=== PATIENT | male | born 1975 | race Caucasian/White ===

== ENCOUNTER 2016-12-04 22:52 | Emergency (ER) | payer SELFPAY ==
[2016-12-04 23:10] VITALS: BP 130/74
[2016-12-05] MEDS ORDERED: TETRACAINE HCL 0.5% OPH SOLN 2 ML ONE (01:36)
--- NOTE | 2016-12-05 01:49 | ER Document Report ---
ED General - General Chief Complaint: Foreign Body in Eye Stated Complaint: FOREIGN OBJECT IN EYE Time Seen by Provider: 12/05/16 01:34 Notes: Patient is a 41-year-old male, does not use corrective lenses or eyeglasses who presents with pain to his left eye for the past 3 days. 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 States that he has had irritation of the eye since that time but it became progressively worse today and he finally noticed that there is a small metallic foreign body in eye prompting him to come to the emergency department. He does note a dull, constant scratching pain to the left eye. He has been trying Visine drops at home with minimal improvement. Nothing worsens his symptoms. He denies any fever or constitutional symptoms. He has not seen an avaya engineer or superintendent house regarding today's concerns. He has no history of similar symptoms in the past. TRAVEL OUTSIDE OF THE [place] IN LAST 30 DAYS: No - Related Data Allergies/Adverse Reactions: No Known Allergies Allergy (Unverified 12/05/16 01:34) Home Medications: Current Home Medications No Home Medications 12/05/16 [History] Past Medical History - General Information source: Patient - Social History Smoking Status: Current Every Day Smoker Frequency of alcohol use: None Drug Abuse: None Lives with: Spouse/Significant other Family History: Reviewed & Not Pertinent Patient has suicidal ideation: No Patient has homicidal ideation: No Renal/ Medical History: Denies: Hx Peritoneal Dialysis Surgical Hx: Negative Review of Systems - Review of Systems Notes: Constitutional: Negative for fever. HENT: Negative for sore throat. Eyes: Positive for left eye pain Cardiovascular: Negative for chest pain. Respiratory: Negative for shortness of breath. Gastrointestinal: Negative for abdominal pain, vomiting or diarrhea. Genitourinary: Negative for dysuria. Musculoskeletal: Negative for back pain. Skin: Negative for rash. Neurological: Negative for headaches, weakness or numbness. 10 point ROS negative except as marked above and in HPI. Physical Exam - Vital signs Vitals: Temp Pulse Resp BP Pulse Ox 98.5 F 65 12 130/74 H 98 12/04/16 23:06 12/04/16 23:06 12/04/16 23:06 12/04/16 23:06 12/04/16 23:06 Interpretation: Normal Notes: PHYSICAL EXAMINATION: GENERAL: Well-appearing, well-nourished and in no acute distress. HEAD: Atraumatic, normocephalic. EYES: Scleral injection on the left. Extraocular motions are intact bilaterally. Pupils are 3 mm equally reactive. There is a very small black metallic foreign body embedded in the cornea of the left eye toward the nasal portion of the central eye. Fluorescein staining performed. No evidence of a corneal abrasion or ulcer. There is no evidence of a rust ring. ENT: Moist mucous membranes. NECK: Normal range of motion LUNGS: Normal work of breathing HEART: 2+ radial pulses bilaterally EXTREMITIES: no pitting or edema. No cyanosis. NEUROLOGICAL: No focal neurological deficits. Moves all extremities spontaneously and on command. PSYCH: Normal mood, normal affect. SKIN: Warm, Dry, normal turgor, no rashes or lesions noted. Course - Re-evaluation Re-evalutation: 12/05/16 01:46 Patient presents with an embedded metallic object in his left eye. Tetracaine was applied to the eye and fluorescein staining performed. No obvious corneal abrasion with exception of the area with an embedded metallic object. This was extracted using a 25-gauge needle without any difficulty. The eye was re- stained thereafter and there was no visualization of any additional corneal abrasion. Patient had full extra ocular motions. Pupils equal and reactive. Visual acute at the bedside 20/20 bilaterally. No additional injuries or concerns. Polytrim drop prophylaxis has been started. At this time will discharge with return precautions and follow-up recommendations. Verbal discharge instructions given a the bedside and opportunity for questions given. Medication warnings reviewed. Patient is in agreement with this plan and has verbalized understanding of return precautions and the need for optho follow-up in the next 24-72 hours. - Vital Signs Vital signs: Temp Pulse Resp BP Pulse Ox 98.5 F 65 12 130/74 H 98 12/04/16 23:06 12/04/16 23:06 12/04/16 23:06 12/04/16 23:06 12/04/16 23:06 Procedures - Eye Procedure Left Foreign body removal: Left Alcaine Drops Administered: Yes Fluorescein applied: Left Antibiotic Oinment/Drps Admin: Left eye Slit lamp used: No Notes: 12/05/16 04:06 Foreign metallic object removed from the left eye using a 25-gauge needle Discharge - Discharge Clinical Impression: Foreign body of left eye Qualifiers: Encounter type: initial encounter Qualified Code(s): T15.92XA - Foreign body on external eye, part unspecified, left eye, initial encounter Condition: Good Disposition: HOME, SELF-CARE Additional Instructions: You were seen tonight for a metallic foreign body in her left eye. This was able to be removed. Please use the Polytrim drops 3 times daily for the next 5 days. You may use a saline based eyedrop if your having irritation of the eye. Please follow-up with an avaya engineer or superintendent house in the next several days if you have any additional concerns or symptoms. Return for any additional concerns you may have including increasing pain, drainage from the eye, swelling around the eye, changes in vision to the eye, or any other symptoms that are worrisome to you.
[2016-12-05] MEDS ORDERED: POLYMYXIN B SULFATE/TMP OPH SOLN (10 ML/ER DISP) OS SCH (02:00)
== END 2016-12-05 01:59 | disposition home or self-care (01) ==
LOC: ER 22:52
PROC: 08C9XZZ Extirpation of Matter from Left Cornea, External Approach (ICD-10-PCS; principal; 2016-12-04)
DX: T15.92XA Foreign body on external eye, part unspecified, left eye, initial encounter (principal); F17.200 Nicotine dependence, unspecified, uncomplicated; X58.XXXA Exposure to other specified factors, initial encounter
CPT/HCPCS: 99283; 65220; J3490

== ENCOUNTER 2016-12-17 01:05 | Emergency (ER) | payer SELFPAY ==
[2016-12-17] MEDS ORDERED: CEFTRIAXONE INJ 1000 MG VIAL IM ONE (03:14)
[2016-12-17] MEDS ORDERED: BACITRACIN ZINC OINTMENT 15 GM TP ONE (03:15)
[2016-12-17] MEDS ORDERED: HYDROCODONE/ACETAMINOPHEN 5-325 MG 6 TAB/DSPK PO PRN (03:15)
[2016-12-17] MEDS ORDERED: DIPH/PERTUSS(ACELL)/TETANUS VAC/PF 0.5 ML SYR (>=10YO) IM ONE (03:28)
--- NOTE | 2016-12-17 04:18 | ER Document Report ---
ED General - General Chief Complaint: Dog Bite Stated Complaint: POSSIBLE DOG BITE Time Seen by Provider: 12/17/16 03:00 Mode of Arrival: Ambulatory Information source: Patient TRAVEL OUTSIDE OF THE [place] IN LAST 30 DAYS: No - HPI Notes: Patient presents with report that earlier this afternoon he broke up a fight between his 2 dogs and was bitten on the right forearm, and initially had no significant discomfort but has had progressive discomfort to the right forearm with a mild amount of swelling since. The patient's dogs will be watched, and there is no concern for rabies exposure. Patient denies any numbness, paresthesia, fever, other injury. Patient does report some mild pain with movement to the hand and wrist. - Related Data Allergies/Adverse Reactions: No Known Allergies Allergy (Verified 12/17/16 01:06) Past Medical History - General Information source: Patient - Social History Smoking Status: Current Every Day Smoker Frequency of alcohol use: None Drug Abuse: None Lives with: Family Family History: Reviewed & Not Pertinent Patient has suicidal ideation: No Patient has homicidal ideation: No Renal/ Medical History: Denies: Hx Peritoneal Dialysis Review of Systems - Review of Systems Notes: REVIEW OF SYSTEMS: CONSTITUTIONAL : Denies fever, chills, or sweats. Denies recent illness. EENT: Denies eye, ear, throat, or mouth pain or symptoms. Denies nasal or sinus congestion or discharge. Denies throat, tongue, or mouth swelling or difficulty swallowing. CARDIOVASCULAR: Denies chest pain. Denies palpitations or racing or irregular heart beat. Denies ankle edema. RESPIRATORY: Denies cough, cold, or chest congestion. Denies shortness of breath, difficulty breathing, or wheezing. GASTROINTESTINAL: Denies abdominal pain or distention. Denies nausea, vomiting , or diarrhea. Denies blood in vomitus, stools, or per rectum. Denies black, tarry stools. Denies constipation. GENITOURINARY: Denies difficulty urinating, painful urination, burning, frequency, blood in urine, or discharge. MUSCULOSKELETAL: Denies back or neck pain or stiffness. Reports mild swelling to the right forearm. SKIN: Denies rash. HEMATOLOGIC : Denies easy bruising or bleeding. LYMPHATIC: Denies swollen, enlarged glands. NEUROLOGICAL: Denies confusion or altered mental status. Denies passing out or loss of consciousness. Denies dizziness or lightheadedness. Denies headache. Denies weakness or paralysis or loss of use of either side. Denies problems with gait or speech. Denies sensory loss, numbness, or tingling. Denies seizures. PSYCHIATRIC: Denies anxiety or stress. Denies depression, suicidal ideation, or homicidal ideation. ALL OTHER SYSTEMS REVIEWED AND NEGATIVE. Dictation was performed using [employer] voice recognition software Physical Exam - Vital signs Vitals: Temp Pulse Resp BP Pulse Ox 97.9 F 83 16 111/74 97 12/17/16 01:10 12/17/16 01:10 12/17/16 01:10 12/17/16 01:10 12/17/16 01:10 - Notes Notes: PHYSICAL EXAMINATION: GENERAL: Well-appearing, well-nourished and in no acute distress. HEAD: Atraumatic, normocephalic. EYES: extraocular movements intact, sclera anicteric, conjunctiva are normal. ENT: Nares patent, NECK: Normal range of motion, Musculoskeletal: Normal range of motion, no pitting or edema. No cyanosis. NEUROLOGICAL: Normal sensory, motor exams PSYCH: Normal mood, normal affect. SKIN: Warm, Dry, normal turgor, no rashes. Patient has a puncture wound measuring 3 mm right volar aspect of the forearm along the ulnar region, there is no significant discharge there is no significant erythema, but there is some mild swelling. There is pain with active motion but no pain with passive motion in flexion and extension of the hand and wrist. There is no proximal erythema or adenopathy. Distally the patient has good capillary refill and pulses. Tendon function is intact. Course - Re-evaluation Re-evalutation: 12/17/16 04:44 Patient was given a tetanus shot, and was given a shot of Rocephin. The wound was cleaned and antibiotic ointment was applied. Discussion was undertaken with the patient and his significant other about the importance of taking his antibiotic regularly, and about the importance of orthopedic follow-up should the patient develop any fever, redness, worsening pain or swelling. - Vital Signs Vital signs: Temp Pulse Resp BP Pulse Ox 97.9 F 84 18 118/78 100 12/17/16 04:33 12/17/16 04:33 12/17/16 04:33 12/17/16 04:33 12/17/16 04:33 Discharge - Discharge Clinical Impression: Dog bite Qualifiers: Encounter type: initial encounter Qualified Code(s): W54.0XXA - Bitten by dog, initial encounter Condition: Stable Disposition: HOME, SELF-CARE Instructions: Animal Bites ([facility]) Additional Instructions: Keep wound clean and dry. Apply antibiotic ointment to the wound. Return to the emergency department case of fever, severe pain or swelling or redness. Prescriptions: Hydrocodone/Acetaminophen [[place] 5-325 mg Tablet] 1 tab PO Q4HP PRN #20 tablet PRN Reason: Amox Tr/Potassium Clavulanate [Augmentin 875-125 Tablet] 1 tab PO BID 10 Days tablet Forms: Return to Work
[2016-12-17 04:35] VITALS: BP 118/78
== END 2016-12-17 04:35 | disposition home or self-care (01) ==
LOC: ER 01:05
DX: S51.851A Open bite of right forearm, initial encounter (principal); W54.0XXA Bitten by dog, initial encounter; F17.200 Nicotine dependence, unspecified, uncomplicated
CPT/HCPCS: 99283; 96372; 90471; 90715; J0696; J3490

== ENCOUNTER 2016-12-17 23:36 | Inpatient (IN) | payer SELFPAY ==
[2016-12-18] MEDS ORDERED: VANCOMYCIN HCL INJ 1000 MG VIAL IV ONE (00:41)
[2016-12-18] MEDS ORDERED: AMPICILLIN SOD/SULBACTAM 3 GM VIAL IV ONE (00:41)
[2016-12-18] MEDS ORDERED: MORPHINE SULFATE 10 MG/ML INJ IV ONE (00:45)
--- NOTE | 2016-12-18 00:46 | ER Document Report ---
ED General - General Chief Complaint: Dog Bite Stated Complaint: ARM PAIN Time Seen by Provider: 12/18/16 00:36 Notes: Patient is a 41-year-old male who presents with complaint of increased redness and swelling in his right forearm. He was seen at 4 AM yesterday morning after a dog bite. He is bringing up to his dogs were fighting. He got bit on the right arm. Seen yesterday and placed on Augmentin. He says he has been taking Augmentin but since then he now has increasing redness and swelling and a red streak that goes all the way up his upper arm. He is able to flex and extend the fingers of his right hand but he says he does have some pain in doing so. No fevers at home. No other complaints at this time. He did receive tetanus yesterday. The dog is a family dog without concern for rabies. TRAVEL OUTSIDE OF THE [place] IN LAST 30 DAYS: No - Related Data Allergies/Adverse Reactions: No Known Allergies Allergy (Verified 12/17/16 01:06) Past Medical History - Social History Smoking Status: Current Every Day Smoker Frequency of alcohol use: Rare Family History: Reviewed & Not Pertinent Patient has suicidal ideation: No Patient has homicidal ideation: No Renal/ Medical History: Denies: Hx Peritoneal Dialysis Review of Systems - Review of Systems Notes: My Normal Review Basic REVIEW OF SYSTEMS: CONSTITUTIONAL : Denies fever, chills, or sweats. Denies recent illness. MUSCULOSKELETAL: Right arm pain. SKIN: Some swelling to the skin right arm. NEUROLOGICAL: Denies altered mental status or loss of consciousness. Denies headache. Denies weakness or paralysis or loss of use of either side. Denies problems with gait or speech. Denies sensory or motor loss. ALL OTHER SYSTEMS REVIEWED AND NEGATIVE. Physical Exam - Vital signs Vitals: Temp Pulse Resp BP Pulse Ox 97.9 F 70 20 123/80 97 12/17/16 23:43 12/17/16 23:43 12/17/16 23:43 12/17/16 23:43 12/17/16 23:43 - Notes Notes: General Appearance: Well nourished, alert, cooperative, no acute distress, moderate obvious discomfort. Vitals: reviewed, See vital signs table. Eyes: PERRL, EOMI, Conjuctiva clear Mouth: No decreasd moisture Extremities: strength 5/5 in all extremities, good pulses in all extremities, patient has swelling and redness to the right arm that starts over the distal wrist and extends all the way to the elbow. He then has a red streak consistent with lymphangitis that goes all the way up the medial aspect of the upper arm. There is no palpable fluctuance or abscess. Patient is able to flex and extend the fingers of the right hand but has some pain in doing so. Skin: warm, dry, appropriate color, no rash Neuro: speech clear, oriented x 3, normal affect, responds appropriately to questions. Course - Re-evaluation Re-evalutation: 12/18/16 01:59 Due to the patient's failure of outpatient antibiotic therapy and much worsening of his cellulitis with some lymphangitis and felt appropriate to admit him for at least observation with IV antibiotics to make sure that the cellulitis starts to improve and go in the right direction. I did speak with the hospitalist, Dr. Navdeep Berrios, who agrees to come evaluate the patient for admission. Dictation of this chart was performed using voice recognition software; therefore, there may be some unintended grammatical errors. - Vital Signs Vital signs: Temp Pulse Resp BP Pulse Ox 97.9 F 70 20 123/80 97 12/17/16 23:43 12/17/16 23:43 12/17/16 23:43 12/17/16 23:43 12/17/16 23:43 - Laboratory Result Diagrams: 12/18/16 01:00 12/18/16 01:00 Laboratory results interpreted by me: 12/18/16 01:00 WBC 15.4 H Absolute Neutrophils 10.9 H Discharge - Discharge Clinical Impression: Dog bite Qualifiers: Encounter type: subsequent encounter Qualified Code(s): W54.0XXD - Bitten by dog, subsequent encounter Cellulitis Qualifiers: Site of cellulitis: extremity Site of cellulitis of extremity: upper extremity Laterality: right Qualified Code(s): L03.113 - Cellulitis of right upper limb Condition: Stable Disposition: ADMITTED OBSERVATION Admitting Provider: Hospitalist
[2016-12-18 01:36] LABS: ABSOLUTE BASOPHILS # (AUTO) 0.1 10^3/uL (0.0-0.2); ABSOLUTE EOSINOPHILS # (AUTO) 0.2 10^3/uL (0.0-0.6); ABSOLUTE MONOCYTES (AUTO) 1.3 10^3/uL (0.1-1.4); ABSOLUTE NEUT (AUTO) 10.9 10^3/uL (1.7-8.2); BASOPHILS % (AUTO) 0.5 % (0-2); HEMATOCRIT 38.9 % (37.9-51.0); HEMOGLOBIN 13.5 g/dL (13.5-17.0); HGB HCT DIFFERENCE 1.6; LYMPHOCYTES % (AUTO) 19.3 % (13-45); MEAN CORPUSCULAR HEMOGLOBIN 30.3 pg (27.0-33.4); MEAN CORPUSCULAR HGB CONC 34.8 g/dL (32.0-36.0); MEAN CORPUSCULAR VOLUME 87 fl (80-97); MONOCYTES % (AUTO) 8.1 % (3-13); RED BLOOD COUNT 4.47 10^6/uL (4.35-5.55); RED CELL DISTRIBUTION WIDTH 12.7 % (11.5-14.0); SEGMENTED NEUTROPHILS % (AUTO) 71.1 % (42-78); WHITE BLOOD COUNT 15.4 10^3/uL (4.0-10.5)
[2016-12-18 01:40] LABS: ANION GAP 12 (5-19); BLOOD UREA NITROGEN 14 mg/dL (7-20); CALCIUM 9.2 mg/dL (8.4-10.2); CARBON DIOXIDE 30 mmol/L (22-30); CHLORIDE 102 mmol/L (98-107); CREATININE RESULT 0.81 mg/dL (0.52-1.25); GLUCOSE 89 mg/dL (75-110); POTASSIUM 3.7 mmol/L (3.6-5.0); SODIUM 143.5 mmol/L (137-145)
[2016-12-18] MEDS ORDERED: ACETAMINOPHEN 325 MG TABLET PO PRN (01:59)
[2016-12-18] MEDS ORDERED: ONDANSETRON HCL INJ/PF 4 MG/2 ML SDV IV PRN ×2 (01:59→07:30)
[2016-12-18] MEDS ORDERED: IPRATROPIUM/ALBUTEROL 0.5-2.5 MG/3 ML AMPUL NEB PRN (01:59)
[2016-12-18] MEDS ORDERED: VANCOMYCIN HCL 0 MG in DEXTROSE 5%-WATER 250 ML IV NR (02:00)
--- NOTE | 2016-12-18 02:14 | RADIOLOGY REPORT (SQ) ---
EXAM DESCRIPTION: FOREARM RIGHT COMPLETED DATE/TIME: 12/18/2016 1:48 am REASON FOR STUDY: dog bite COMPARISON: None. NUMBER OF VIEWS: Two views. TECHNIQUE: Two radiographic images acquired of the right forearm, including elbow and wrist in at le ast one projection. LIMITATIONS: None. FINDINGS: MINERALIZATION: Normal. BONES: No acute fracture. No worrisome bone lesions. SOFT TISSUES: No foreign body. Known soft tissue injury/laceration. OTHER: No other significant finding. IMPRESSION: NEGATIVE STUDY OF THE RIGHT FOREARM. NO RADIOGRAPHIC EVIDENCE OF ACUTE INJURY. Known so ft tissue injury/laceration. TECHNICAL DOCUMENTATION: JOB ID: [id number] [employer]- All Rights Reserved
[2016-12-18] MEDS: NORMAL SALINE 1000 ML 1,000 ML IV SCH ×2 (02:31→05:45)
[2016-12-18] MEDS: KETOROLAC TROMETHAMINE INJ/PF 30 MG/1 ML SDV IV PRN ×4 (03:12→22:09)
[2016-12-18] MEDS ORDERED: AMPICILLIN SOD/SULBACTAM 3 GM VIAL IV PRN (05:00)
[2016-12-18] MEDS: AMPICILLIN SODIUM/SULBACTAM NA 3 GM in NORMAL SALINE 100 ML IV SCH ×3 (05:41→19:08)
[2016-12-18] MEDS: HEPARIN SOD (PORCINE) 5,000 UNIT/ML 1 ML SYRINGE SUBCUT SCH ×3 (06:16→22:10)
[2016-12-18 06:29] LABS: ABSOLUTE BASOPHILS # (AUTO) 0.1 10^3/uL (0.0-0.2); ABSOLUTE EOSINOPHILS # (AUTO) 0.3 10^3/uL (0.0-0.6); ABSOLUTE LYMPHOCYTES (AUTO) 2.8 10^3/uL (0.5-4.7); ABSOLUTE MONOCYTES (AUTO) 1.3 10^3/uL (0.1-1.4); ABSOLUTE NEUT (AUTO) 8.1 10^3/uL (1.7-8.2); BASOPHILS % (AUTO) 0.7 % (0-2); EOSINOPHILS % (AUTO) 2.5 % (0-6); HEMATOCRIT 33.6 % (37.9-51.0); HEMOGLOBIN 11.8 g/dL (13.5-17.0); HGB HCT DIFFERENCE 1.8; LYMPHOCYTES % (AUTO) 22.3 % (13-45); MEAN CORPUSCULAR HEMOGLOBIN 30.7 pg (27.0-33.4); MEAN CORPUSCULAR HGB CONC 35.2 g/dL (32.0-36.0); MEAN CORPUSCULAR VOLUME 87 fl (80-97); MONOCYTES % (AUTO) 10.3 % (3-13); RED BLOOD COUNT 3.86 10^6/uL (4.35-5.55); RED CELL DISTRIBUTION WIDTH 12.8 % (11.5-14.0); SEGMENTED NEUTROPHILS % (AUTO) 64.2 % (42-78); WHITE BLOOD COUNT 12.6 10^3/uL (4.0-10.5)
--- NOTE | 2016-12-18 06:43 | PDOC H&P ---
History of Present Illness Admission Date/PCP: 12/18/16 01:59 Patient complains of: Right forearm pain and swelling History of Present Illness: JL SEALS is a 41 year old male with a past medical history of tobacco dependence who was in his usual state of health until approximately 24 hours prior to presentation receiving a dog bite to the right forearm while his dogs from fighting. He noted pain and swelling shortly thereafter prompting him to seek evaluation emergency room where he was placed on Augmentin and discharged however developed worsening prompting a return where he is found to have erythema and edema involving the entire right forearm. Imaging does not reveal foreign body or abscess he started on vancomycin and Unasyn referred to the hospitalist for admission. Patient denies previous episode or MRSA. Past Medical History Medical History: None Psychiatric Medical History: Denies: Depression Past Surgical History Past Surgical History: Reports: None Social History Information Source: Patient Smoking Status: Current Every Day Smoker Frequency of Alcohol Use: Rare Hx Recreational Drug Use: No Drugs: None Hx Prescription Drug Abuse: No - Advance Directive Resuscitation Status: Full Code Family History Family History: COPD Parental Family History Reviewed: Yes Children Family History Reviewed: Yes Sibling(s) Family History Reviewed.: Yes Medication/Allergy Home Medications: No Home Medications 12/18/16 Allergies/Adverse Reactions: No Known Allergies Allergy (Verified 12/17/16 01:06) Review of Systems Constitutional: ABSENT: chills, fever(s), headache(s), weight gain, weight loss Eyes: ABSENT: visual disturbances Ears: ABSENT: hearing changes Cardiovascular: ABSENT: chest pain, dyspnea on exertion, edema, orthropnea, palpitations Respiratory: ABSENT: cough, hemoptysis Gastrointestinal: ABSENT: abdominal pain, constipation, diarrhea, hematemesis, hematochezia, nausea, vomiting Genitourinary: ABSENT: dysuria, hematuria Musculoskeletal: ABSENT: joint swelling Integumentary: ABSENT: rash, wounds Neurological: ABSENT: abnormal gait, abnormal speech, confusion, dizziness, focal weakness, syncope Psychiatric: ABSENT: anxiety, depression, homidical ideation, suicidal ideation Endocrine: ABSENT: cold intolerance, heat intolerance, polydipsia, polyuria Hematologic/Lymphatic: ABSENT: easy bleeding, easy bruising Physical Exam Vital Signs: Temp Pulse Resp BP Pulse Ox 98 F 65 14 104/64 99 12/18/16 03:38 12/18/16 03:38 12/18/16 03:38 12/18/16 03:38 12/18/16 03:38 Intake & Output 12/16/16 12/17/16 12/18/16 11:59 11:59 11:59 Weight 59.5 kg General appearance: PRESENT: cooperative, mild distress Head exam: PRESENT: atraumatic, normocephalic Eye exam: PRESENT: conjunctiva pink, EOMI, PERRLA. ABSENT: scleral icterus Ear exam: PRESENT: normal external ear exam Mouth exam: PRESENT: moist, tongue midline Neck exam: ABSENT: carotid bruit, JVD, lymphadenopathy, thyromegaly Respiratory exam: PRESENT: clear to auscultation braxton. ABSENT: rales, rhonchi, wheezes Cardiovascular exam: PRESENT: RRR. ABSENT: diastolic murmur, rubs, systolic murmur Pulses: PRESENT: normal dorsalis pedis pul Vascular exam: PRESENT: normal capillary refill GI/Abdominal exam: PRESENT: normal bowel sounds, soft. ABSENT: distended, guarding, mass, organolmegaly, rebound, tenderness Rectal exam: PRESENT: deferred Extremities exam: PRESENT: full ROM. ABSENT: calf tenderness, clubbing, pedal edema Neurological exam: PRESENT: alert, awake, oriented to person, oriented to place , oriented to time, oriented to situation, CN II-XII grossly intact. ABSENT: motor sensory deficit Psychiatric exam: PRESENT: appropriate affect, normal mood. ABSENT: homicidal ideation, suicidal ideation Skin exam: PRESENT: dry, erythema - Right forearm erythema and edema with a 1 cm laceration distally without exudate, warm. ABSENT: cyanosis, rash Results Impressions: Forearm X-Ray 12/18/16 00:42 IMPRESSION: NEGATIVE STUDY OF THE RIGHT FOREARM. NO RADIOGRAPHIC EVIDENCE OF ACUTE INJURY. Known soft tissue injury/laceration. Assessment & Plan - Diagnosis (1) Dog bite Qualifiers: Encounter type: subsequent encounter Qualified Code(s): W54.0XXD - Bitten by dog, subsequent encounter Is this a current diagnosis for this admission?: Yes Plan: Failing outpatient Augmentin. Unasyn and vancomycin initiated given pain with range of motion and concern for early tenosynovitis will obtain orthopedic surgery consult. (2) Cellulitis Qualifiers: Site of cellulitis: extremity Site of cellulitis of extremity: upper extremity Laterality: right Qualified Code(s): L03.113 - Cellulitis of right upper limb Is this a current diagnosis for this admission?: Yes Plan: Please see #1 follow-up CBC and blood culture (3) Tobacco abuse Is this a current diagnosis for this admission?: Yes Plan: Tobacco Dependence patient received tobacco cessation counseling and offered nicotine replacement options - Time Time Spent: 30 to 50 Minutes - Inpatient Certification Medical Necessity: Need Close Monitoring Due to Risk of Patient Decompensation
[2016-12-18] MEDS: VANCOMYCIN HCL 1,000 MG in DEXTROSE 5%-WATER 250 ML IV SCH ×2 (09:24→22:09)
[2016-12-18] MEDS: DOCUSATE SODIUM 100 MG CAPSULE PO SCH ×2 (09:24→19:08)
--- NOTE | 2016-12-18 16:17 | PDOC PROGRESS REPORT ---
Subjective Progress Note for:: 12/18/16 Subjective:: Pt seen while resting in bed comfortably with family present. He reports continued stiffness of Rt wrist and 3-5th fingers. He reports discomfort with movement, but otherwise is pain free. Edema and intensity of erythema has improved significantly throughout the day (family member showed me pictures). Pt's primary concern today is nicotine withdrawal. He reports that he has been agitated and "having nicotine fits" throughout the day. He declines nicotine patch. Offered to allow family member to bring otc nicotine gum if he would find that beneficial. Pt has no other questions or concerns today. ROS as above and otherwise negative. Physical Exam Vital Signs: Temp Pulse Resp BP Pulse Ox 97.8 F 123 H 12 99/55 L 98 12/18/16 12:20 12/18/16 12:20 12/18/16 12:20 12/18/16 12:20 12/18/16 12:20 Intake & Output 12/17/16 12/18/16 12/19/16 06:59 06:59 06:59 Intake Total 2364 Balance 2364 Weight 59.5 kg General appearance: PRESENT: no acute distress, thin, well-developed, well- nourished Head exam: PRESENT: atraumatic, normocephalic Eye exam: PRESENT: conjunctiva pink, EOMI, PERRLA. ABSENT: scleral icterus Ear exam: PRESENT: normal external ear exam Mouth exam: PRESENT: moist, tongue midline Teeth exam: PRESENT: poor dentation Neck exam: ABSENT: carotid bruit, JVD, lymphadenopathy, thyromegaly Respiratory exam: PRESENT: clear to auscultation braxton, symmetrical, unlabored. ABSENT: rales, rhonchi, wheezes Cardiovascular exam: PRESENT: RRR, tachycardia. ABSENT: diastolic murmur, rubs , systolic murmur Pulses: PRESENT: normal dorsalis pedis pul Vascular exam: PRESENT: normal capillary refill GI/Abdominal exam: PRESENT: normal bowel sounds, soft. ABSENT: distended, guarding, mass, organolmegaly, rebound, tenderness Rectal exam: PRESENT: deferred Extremities exam: PRESENT: full ROM, tenderness - Rt wrist; worsens with flexion and glass cleaning machine tender. ABSENT: calf tenderness, clubbing, pedal edema Neurological exam: PRESENT: alert, awake, oriented to person, oriented to place , oriented to time, oriented to situation, CN II-XII grossly intact. ABSENT: motor sensory deficit Psychiatric exam: PRESENT: appropriate affect, normal mood. ABSENT: homicidal ideation, suicidal ideation Skin exam: PRESENT: dry, erythema, intact, warm, other - Rt forearm mild edema and minimal erythema with a 1 cm laceration distally without exudate. ABSENT: cyanosis, rash Results Laboratory Results: 12/18/16 06:02 12/18/16 06:02 WBC 12.6 H RBC 3.86 L Hgb 11.8 L Hct 33.6 L MCV 87 MCH 30.7 MCHC 35.2 RDW 12.8 Plt Count 124 L Seg Neutrophils % 64.2 Lymphocytes % 22.3 Monocytes % 10.3 Eosinophils % 2.5 Basophils % 0.7 Absolute Neutrophils 8.1 Absolute Lymphocytes 2.8 Absolute Monocytes 1.3 Absolute Eosinophils 0.3 Absolute Basophils 0.1 Impressions: Forearm X-Ray 12/18/16 00:42 IMPRESSION: NEGATIVE STUDY OF THE RIGHT FOREARM. NO RADIOGRAPHIC EVIDENCE OF ACUTE INJURY. Known soft tissue injury/laceration. Assessment & Plan - Diagnosis (1) Cellulitis Qualifiers: Site of cellulitis: extremity Site of cellulitis of extremity: upper extremity Laterality: right Qualified Code(s): L03.113 - Cellulitis of right upper limb Is this a current diagnosis for this admission?: Yes Plan: Failed outpatient Augmentin. 1- Continue Unasyn and Vancomycin. Blood cultures pending. 2- Keep extremity elevated, continue gentle range of motion 3- Appreciate Orthopedic consultation for evaluation of tenosynovitis (2) Tobacco abuse Is this a current diagnosis for this admission?: Yes Plan: Tobacco dependence; smokes 1 ppd. Discussed smoking cessation. Pt declined nicotine replacement therapy. (3) Tachycardia Is this a current diagnosis for this admission?: Yes Plan: Pt with tachycardia (HR 124) and relatively low blood pressure. Has been afebrile and does not appear toxically ill. Pt reports that he has been agitated today w/ regard to nicotine withdrawal and states that his elevated HR was likely to him being upset earlier in the day. Will continue to monitor closely for early sepsis. 1- Continue IV abx as above 2- Blood cultures pending (4) Dog bite Qualifiers: Encounter type: subsequent encounter Qualified Code(s): W54.0XXD - Bitten by dog, subsequent encounter Is this a current diagnosis for this admission?: Yes Plan: Plan as above. - Time Time Spent with patient: 25-34 minutes Smoking Cessation Education: 3 to 10 minutes Medications reviewed and adjusted accordingly: Yes Anticipated discharge: Home
--- NOTE | 2016-12-18 16:44 | PDOC CONSULTATION ---
Consultation Consult Date: 12/18/16 Consult reason:: Dog bite to the right volar forearm History of Present Illness Admission Date/PCP: 12/18/16 01:59 Patient complains of: Right forearm pain status post dog bite History of Present Illness: 41-year-old gentleman who was his dog from a fight when he had a dog bite to the right forearm on the volar aspect. Patient was admitted for IV antibiotics. He complains of pain with flexing the middle ring and small finger of the right hand. He states there is only one puncture from the dog bite on the volar aspect. Denies any fevers or chills. Denies any streaking and erythema but the arm. Denies any numbness or tingling or paresthesias. Despite the pain patient does admit having full motion of the hands. Past Medical History Psychiatric Medical History: Denies: Depression Past Surgical History Past Surgical History: Reports: None Social History Smoking Status: Current Every Day Smoker Frequency of Alcohol Use: Rare Hx Recreational Drug Use: No Drugs: None Hx Prescription Drug Abuse: No - Advance Directive Resuscitation Status: Full Code Family History Family History: COPD Parental Family History Reviewed: No Children Family History Reviewed: No Sibling(s) Family History Reviewed.: No Medication/Allergy Home Medications: No Home Medications 12/18/16 Allergies/Adverse Reactions: No Known Allergies Allergy (Verified 12/17/16 01:06) Review of Systems All systems: reviewed and no additional remarkable complaints except as stated Physical Exam Vital Signs: Temp Pulse Resp BP Pulse Ox 36.6 C 123 H 12 99/55 L 98 12/18/16 12:20 12/18/16 12:20 12/18/16 12:20 12/18/16 12:20 12/18/16 12:20 Intake & Output 12/17/16 12/18/16 12/19/16 06:59 06:59 06:59 Intake Total 2364 Balance 2364 Weight 59.5 kg General appearance: PRESENT: no acute distress, well-nourished Eye exam: PRESENT: EOMI Adult Front & Back Image: 1 - 1 7 mm puncture wound on the volar aspect just proximal to the wrist crease of the right forearm. Patient can fully extend all 5 digits and fully flex all digits including the PIP DIP and MCP joints. He does have pain with range of motion of the middle ring and small finger. He has good sensation to light touch and good capillary refill. Palpation of the forearm is tender but minimal erythema. Results Laboratory Results: 12/18/16 06:02 12/18/16 06:02 WBC 12.6 H RBC 3.86 L Hgb 11.8 L Hct 33.6 L MCV 87 MCH 30.7 MCHC 35.2 RDW 12.8 Plt Count 124 L Seg Neutrophils % 64.2 Lymphocytes % 22.3 Monocytes % 10.3 Eosinophils % 2.5 Basophils % 0.7 Absolute Neutrophils 8.1 Absolute Lymphocytes 2.8 Absolute Monocytes 1.3 Absolute Eosinophils 0.3 Absolute Basophils 0.1 Impressions: Forearm X-Ray 12/18/16 00:42 IMPRESSION: NEGATIVE STUDY OF THE RIGHT FOREARM. NO RADIOGRAPHIC EVIDENCE OF ACUTE INJURY. Known soft tissue injury/laceration. Assessment & Plan - Diagnosis (1) Cellulitis Qualifiers: Site of cellulitis: extremity Site of cellulitis of extremity: upper extremity Laterality: right Qualified Code(s): L03.113 - Cellulitis of right upper limb Is this a current diagnosis for this admission?: Yes Plan: 41-year-old gentleman admitted for IV antibiotics for cellulitis second to dog bite. Patient has full function and intact tendons with no signs of abscess. At this point no surgical intervention required and will sign off. \ Call us with any questions.
[2016-12-19] MEDS: AMPICILLIN SODIUM/SULBACTAM NA 3 GM in NORMAL SALINE 100 ML IV SCH ×2 (00:40→05:03)
[2016-12-19 00:57] VITALS: BP 106/56
[2016-12-19] MEDS: KETOROLAC TROMETHAMINE INJ/PF 30 MG/1 ML SDV IV PRN (05:03)
[2016-12-19] MEDS: HEPARIN SOD (PORCINE) 5,000 UNIT/ML 1 ML SYRINGE SUBCUT SCH (05:03)
[2016-12-19 05:47] LABS: ABSOLUTE BASOPHILS # (AUTO) 0.1 10^3/uL (0.0-0.2); ABSOLUTE EOSINOPHILS # (AUTO) 0.5 10^3/uL (0.0-0.6); ABSOLUTE LYMPHOCYTES (AUTO) 2.5 10^3/uL (0.5-4.7); ABSOLUTE MONOCYTES (AUTO) 0.9 10^3/uL (0.1-1.4); ABSOLUTE NEUT (AUTO) 5.7 10^3/uL (1.7-8.2); EOSINOPHILS % (AUTO) 4.9 % (0-6); HEMATOCRIT 34.3 % (37.9-51.0); HEMOGLOBIN 12.1 g/dL (13.5-17.0); LYMPHOCYTES % (AUTO) 25.7 % (13-45); MEAN CORPUSCULAR HEMOGLOBIN 30.9 pg (27.0-33.4); MEAN CORPUSCULAR HGB CONC 35.4 g/dL (32.0-36.0); MEAN CORPUSCULAR VOLUME 88 fl (80-97); MONOCYTES % (AUTO) 9.6 % (3-13); RED BLOOD COUNT 3.92 10^6/uL (4.35-5.55); RED CELL DISTRIBUTION WIDTH 12.7 % (11.5-14.0); SEGMENTED NEUTROPHILS % (AUTO) 58.8 % (42-78); WHITE BLOOD COUNT 9.7 10^3/uL (4.0-10.5)
[2016-12-19 06:13] LABS: ANION GAP 9 (5-19); BLOOD UREA NITROGEN 14 mg/dL (7-20); CALCIUM 8.9 mg/dL (8.4-10.2); CARBON DIOXIDE 26 mmol/L (22-30); CHLORIDE 107 mmol/L (98-107); CREATININE RESULT 0.73 mg/dL (0.52-1.25); GLUCOSE 95 mg/dL (75-110); SODIUM 142.1 mmol/L (137-145)
--- NOTE | 2016-12-19 10:29 | PDOC DISCHARGE SUMMARY ---
General - Admit/Disc Date/PCP Admission Date/Primary Care Provider: 12/18/16 01:59 Discharge Date: 12/19/16 - Discharge Diagnosis (1) Cellulitis Is this a current diagnosis for this admission?: Yes Summary: Pt was seen in the ED late in the evening of 12/17 for a dog bite. He received IM rocephin and provided a prescription for Augmentin. He returned to the ED the following evening for worsening redness and erythema. He was admitted for IV antibiotics as there was a concern of possible treatment failure and tenosynovitis. Othopedics was consulted and determined there was no need for surgical intervention. The patient improved rapidly with IV antibiotics. Considering that he worsened within the first 24 hours, it is unlikely that this was a true treatment failure on Augmentin and so will be discharged with instructions to resume his prescription and complete the full 14 day course. (2) Tobacco abuse Is this a current diagnosis for this admission?: Yes (3) Tachycardia Is this a current diagnosis for this admission?: Yes Summary: Resolved. (4) Dog bite Is this a current diagnosis for this admission?: Yes Summary: As above. - Additional Information Resuscitation Status: Full Code Discharge Diet: Regular Discharge Activity: Activity As Tolerated, Other - Keep extremity elevated. Home Medications: No Home Medications 12/18/16 History of Present Illness Patient complains of: Slight tenderness to right wrist with flexion. History of Present Illness: Per H&P by Dr. Berrios: JL SEALS is a 41 year old male with [facility] significant for tobacco dependence who was in his usual state of health until approximately 24 hours prior to presentation receiving a dog bite to the right forearm while his dogs from fighting. He noted pain and swelling shortly thereafter prompting him to seek evaluation emergency room where he was placed on Augmentin and discharged however developed worsening prompting a return where he is found to have erythema and edema involving the entire right forearm. Imaging does not reveal foreign body or abscess he started on vancomycin and Unasyn referred to the hospitalist for admission. Patient denies previous episode or MRSA. Hospital Course Hospital Course: Patient was admitted on the for cellulitis to the right forearm secondary to a dog bite. He was placed on IV vancomycin and Unasyn. Orthopedics was consulted to evaluate for potential tenosynovitis. He was mildly tachycardic during the day yesterday with stable blood pressures. These corrected with improvement of his cellulitis. Orthopedics determined that there was no required surgical interventions. Preliminary blood cultures show no growth at 24 hours. Remaining blood work is acceptable and clinically his cellulitis has improved dramatically. He is discharged home with recommendations to resume his previously prescribed Augmentin and complete the antibiotic therapy for a total of 14 days of therapy. He states that he has remaining hydrocodone from his ED visit and so will not need prescription medications. Physical Exam Vital Signs: Temp Pulse Resp BP Pulse Ox 97.4 F 49 L 16 106/56 L 99 12/18/16 22:00 12/18/16 22:00 12/18/16 22:00 12/18/16 22:00 12/18/16 22:00 Intake & Output 12/18/16 12/19/16 12/20/16 06:59 06:59 06:59 Intake Total 3624 Balance 3624 Weight 59.5 kg 62.7 kg General appearance: PRESENT: no acute distress, thin, well-developed, well- nourished Head exam: PRESENT: atraumatic, normocephalic Eye exam: PRESENT: conjunctiva pink, EOMI, PERRLA. ABSENT: scleral icterus Ear exam: PRESENT: normal external ear exam Mouth exam: PRESENT: moist, tongue midline Neck exam: ABSENT: carotid bruit, JVD, lymphadenopathy, thyromegaly Respiratory exam: PRESENT: clear to auscultation braxton. ABSENT: rales, rhonchi, wheezes Cardiovascular exam: PRESENT: RRR. ABSENT: diastolic murmur, rubs, systolic murmur Pulses: PRESENT: normal dorsalis pedis pul Vascular exam: PRESENT: normal capillary refill GI/Abdominal exam: PRESENT: normal bowel sounds, soft. ABSENT: distended, guarding, mass, organolmegaly, rebound, tenderness Rectal exam: PRESENT: deferred Extremities exam: PRESENT: full ROM. ABSENT: calf tenderness, clubbing, pedal edema Neurological exam: PRESENT: alert, awake, oriented to person, oriented to place , oriented to time, oriented to situation, CN II-XII grossly intact. ABSENT: motor sensory deficit Psychiatric exam: PRESENT: appropriate affect, normal mood. ABSENT: homicidal ideation, suicidal ideation Skin exam: PRESENT: dry, erythema - Slight erythema and edema surrounding laceration to the distal, anterior, forearm. Lymphangitis has resolved., intact , warm. ABSENT: cyanosis, rash Results Laboratory Results: 12/19/16 04:37 12/19/16 04:37 12/19/16 12/19/16 04:37 04:37 WBC 9.7 RBC 3.92 L Hgb 12.1 L Hct 34.3 L MCV 88 MCH 30.9 MCHC 35.4 RDW 12.7 Plt Count 125 L Seg Neutrophils % 58.8 Lymphocytes % 25.7 Monocytes % 9.6 Eosinophils % 4.9 Basophils % 1.0 Absolute Neutrophils 5.7 Absolute Lymphocytes 2.5 Absolute Monocytes 0.9 Absolute Eosinophils 0.5 Absolute Basophils 0.1 Sodium 142.1 Potassium 4.0 Chloride 107 Carbon Dioxide 26 Anion Gap 9 BUN 14 Creatinine 0.73 Est GFR ( Amer) > 60 Est GFR (Non-Af Amer) > 60 Glucose 95 Calcium 8.9 Impressions: Forearm X-Ray 12/18/16 00:42 IMPRESSION: NEGATIVE STUDY OF THE RIGHT FOREARM. NO RADIOGRAPHIC EVIDENCE OF ACUTE INJURY. Known soft tissue injury/laceration. Qualifiers PATEINT BEING DISCHARGED WITH ANY OF THE FOLLOWING DIAGNOSIS?: No
== END 2016-12-19 11:34 | disposition home or self-care (01) | DRG 603 ==
LOC: ER 23:36 → EH 12-18 01:59 → UNDOADMIN 12-18 02:11 → EH 12-18 02:11 → 4S 12-18 02:55 → EH 12-18 02:55
PROVIDERS: ADMIT Internal Medicine; ATTEND Internal Medicine
PROC: 3E0F73Z Introduction of Anti-inflammatory into Respiratory Tract, Via Natural or Artificial Opening (ICD-10-PCS; principal; 2016-12-18)
DX: L03.113 Cellulitis of right upper limb (principal); S51.851D Open bite of right forearm, subsequent encounter; W54.0XXD Bitten by dog, subsequent encounter; F17.210 Nicotine dependence, cigarettes, uncomplicated; Z83.6 Family history of other diseases of the respiratory system
CPT/HCPCS: 36415; 80048; 85025; 85027; 87040; 96365; 96368; 96375; 99284; J0295; J1644; J1885; J2270; J3370; J7030; J7060

== ENCOUNTER → 2017-01-20 | Outpatient (CLI) | payer OTHER ==
[2017-01-20 10:17] LABS: ABSOLUTE BASOPHILS # (AUTO) 0.1 10^3/uL (0.0-0.2); ABSOLUTE EOSINOPHILS # (AUTO) 0.5 10^3/uL (0.0-0.6); ABSOLUTE LYMPHOCYTES (AUTO) 2.1 10^3/uL (0.5-4.7); ABSOLUTE MONOCYTES (AUTO) 0.8 10^3/uL (0.1-1.4); ABSOLUTE NEUT (AUTO) 4.5 10^3/uL (1.7-8.2); BASOPHILS % (AUTO) 0.9 % (0-2); HEMOGLOBIN 14.9 g/dL (13.5-17.0); HGB HCT DIFFERENCE 3.7; LYMPHOCYTES % (AUTO) 26.8 % (13-45); MEAN CORPUSCULAR HEMOGLOBIN 31.1 pg (27.0-33.4); MEAN CORPUSCULAR HGB CONC 36.3 g/dL (32.0-36.0); MEAN CORPUSCULAR VOLUME 86 fl (80-97); MONOCYTES % (AUTO) 9.6 % (3-13); RED BLOOD COUNT 4.78 10^6/uL (4.35-5.55); RED CELL DISTRIBUTION WIDTH 12.9 % (11.5-14.0); SEGMENTED NEUTROPHILS % (AUTO) 56.7 % (42-78)
[2017-01-20 10:39] LABS: ALANINE AMINOTRANSFERASE 66 U/L (21-72); ALBUMIN 4.5 g/dL (3.5-5.0); ALKALINE PHOSPHATASE 102 U/L (38-126); ANION GAP 11 (5-19); ASPARTATE AMINO TRANSFERASE 66 U/L (17-59); BILIRUBIN,DIRECT 0.4 mg/dL (0.0-0.4); BILIRUBIN,TOTAL 0.5 mg/dL (0.2-1.3); BLOOD UREA NITROGEN 18 mg/dL (7-20); CALCIUM 9.5 mg/dL (8.4-10.2); CARBON DIOXIDE 27 mmol/L (22-30); CHLORIDE 104 mmol/L (98-107); CREATININE RESULT 0.95 mg/dL (0.52-1.25); Direct HDL 32 mg/dL (>40); GLUCOSE 96 mg/dL (75-110); POTASSIUM 4.7 mmol/L (3.6-5.0); SODIUM 141.9 mmol/L (137-145); TOTAL PROTEIN 8.1 g/dL (6.3-8.2); TRIGLYCERIDES 184 mg/dL (<150)
[2017-01-20 10:50] LABS: DIRECT LDL 101 mg/dL (<100)
[2017-01-20 11:30] LABS: VLDL CHOLESTEROL 36.8 mg/dL (10-31)
== END ==
LOC: CCC 09:30
DX: Z13.9 Encounter for screening, unspecified (principal)
CPT/HCPCS: 36415; 80053; 80061; 83036; 84153; 84479; 85025

== ENCOUNTER → 2017-02-16 | Outpatient (CLI) | payer OTHER | LOC: CCC 13:23 | DX: R53.83 Other fatigue (principal) | CPT/HCPCS: 36415; 84402; 84403; 84443 ==

== ENCOUNTER 2017-06-03 19:52 | Emergency (ER) | payer OTHER ==
[2017-06-03] MEDS ORDERED: PREDNISONE 20 MG TABLET PO ONE (21:05)
[2017-06-03] MEDS ORDERED: IPRATROPIUM/ALBUTEROL 0.5-2.5 MG/3 ML AMPUL NEB ONE (21:05)
--- NOTE | 2017-06-03 21:11 | ER Document Report ---
HPI - HPI Patient complains to provider of: Cough Onset: Other - 4 days Onset/Duration: Persistent Quality of pain: No pain Pain Level: Denies Context: Patient presents with occasionally productive cough for the past 4 days. Patient reports subjective fever yesterday. Patient does report wheezing at home. Patient states that he typically smokes a pack and a half although has cut back over the past few days. Associated Symptoms: Productive cough, Fever, Rhinnorhea. denies: Chest pain, Earache Exacerbated by: Denies Relieved by: Denies Similar symptoms previously: No Recently seen / treated by doctor: No - ROS ROS below otherwise negative: Yes Systems Reviewed and Negative: Yes All other systems reviewed and negative - CONSTITUTIONAL Constitutional: REPORTS: Fever - EENT EENT: REPORTS: Nasal Drainage-Clear, Congestion - CARDIOVASCULAR Cardiovascular: DENIES: Chest pain - RESPIRATORY Respiratory: REPORTS: Coughing. DENIES: Trouble Breathing - GASTROINTESTINAL Gastrointestinal: DENIES: Abdominal Pain, Nausea, Patient vomiting, Diarrhea - MUSCULOSKELETAL Musculoskeletal: DENIES: Back Pain - DERM Skin Color: Normal Skin Problems: None Past Medical History - General Information source: Patient - Social History Smoking Status: Current Every Day Smoker Smoking Education Provided: Yes Frequency of alcohol use: None Drug Abuse: None Occupation: Construction Lives with: Family Family History: COPD - Medical History Medical History: Negative Renal/ Medical History: Denies: Hx Peritoneal Dialysis Psychiatric Medical History: Denies: Hx Depression Surgical Hx: Negative - Immunizations Hx Diphtheria, Pertussis, Tetanus Vaccination: Yes Vertical Provider Document - CONSTITUTIONAL Agree With Documented VS: Yes Exam Limitations: No Limitations General Appearance: WD/WN, No Apparent Distress - INFECTION CONTROL TRAVEL OUTSIDE OF THE [place] IN LAST 30 DAYS: No - HEENT HEENT: Atraumatic, Normal ENT Exam, Normocephalic - NECK Neck: Normal Inspection, Supple - RESPIRATORY Respiratory: No Respiratory Distress, Chest Non-Tender, Wheezing - scattered - CARDIOVASCULAR Cardiovascular: Regular Rate, Regular Rhythm, No Murmur - BACK Back: Normal Inspection - MUSCULOSKELETAL/EXTREMETIES Musculoskeletal/Extremeties: MAEW - NEURO Level of Consciousness: Awake, Alert, Appropriate Motor/Sensory: No Motor Deficit - DERM Integumentary: Warm, Dry, No Rash Course - Re-evaluation Re-evalutation: 06/03/17 22:52 Patient with decreased wheezing bilaterally belies her treatment. Chest x-ray reviewed, no concern for pneumonia or pneumothorax. Patient nontoxic in appearance. Patient encouraged to quit smoking. Discussed worsening symptoms that patient should return mainly for. Patient verbalized understanding and agrees with plan of care. - Vital Signs Vital signs: Temp Pulse Resp BP Pulse Ox 98.5 F 73 16 126/83 H 96 06/03/17 20:19 06/03/17 20:19 06/03/17 20:19 06/03/17 20:19 06/03/17 20:19 Discharge - Discharge Clinical Impression: Wheezing Upper respiratory infection Qualifiers: URI type: unspecified URI Qualified Code(s): J06.9 - Acute upper respiratory infection, unspecified Condition: Stable Disposition: HOME, SELF-CARE Instructions: Acetaminophen, Inhaled Bronchodilators ([facility]), Steroid Medication , Upper Respiratory Illness ([facility]) Additional Instructions: Return immediately for any new or worsening symptoms Followup with your primary care provider, call tomorrow to make a followup appointment Prescriptions: Benzonatate [Tessalon Perle 100 mg Capsule] 100 mg PO Q8HP PRN #20 cap PRN Reason: Prednisone [Deltasone 20 mg Tablet] 3 tab PO DAILY 4 Days tablet Forms: Smoking Cessation Education Referrals: ALY MONSALVE MD [Primary Care Provider] - Follow up tomorrow
--- NOTE | 2017-06-03 22:43 | RADIOLOGY REPORT (SQ) ---
EXAM DESCRIPTION: CHEST PA/LAT COMPLETED DATE/TIME: 06/03/2017 9:24 pm REASON FOR STUDY: cough COMPARISON: None. EXAM PARAMETERS: NUMBER OF VIEWS: two views TECHNIQUE: Digital Frontal and Lateral radiographic views of the chest acquired. RADIATION DOSE: NA LIMITATIONS: none FINDINGS: LUNGS AND PLEURA: No opacities, masses or pneumothorax. No pleural effusion. MEDIASTINUM AND HILAR STRUCTURES: No masses or contour abnormalities. HEART AND VASCULAR STRUCTURES: Heart normal size. No evidence for failure. BONES: No acute findings. HARDWARE: None in the chest. OTHER: No other significant finding. IMPRESSION: NO SIGNIFICANT RADIOGRAPHIC FINDING IN THE CHEST. TECHNICAL DOCUMENTATION: JOB ID: [id number] [employer]- All Rights Reserved Reading location - IP/workstation name: [email or web address]
[2017-06-03] MEDS ORDERED: ALBUTEROL SULFATE HFA (90 MCG/PUFF) 8 GM MDI (1 MDI/ER DISP) IH PRN (22:53)
[2017-06-03 23:14] VITALS: BP 116/76
== END 2017-06-03 23:20 | disposition home or self-care (01) ==
LOC: ER 19:52
DX: J06.9 Acute upper respiratory infection, unspecified (principal); R06.2 Wheezing; R05 Cough; R50.9 Fever, unspecified; F17.200 Nicotine dependence, unspecified, uncomplicated
CPT/HCPCS: 94640; 99283; 71046; J7512; J3490; J7620

== ENCOUNTER 2017-06-11 19:41 | Emergency (ER) | payer OTHER ==
[2017-06-11 19:48] VITALS: BP 130/75
[2017-06-11] MEDS ORDERED: ALBUTEROL SULFATE 0.083% NEB 2.5 MG/3 ML AMPUL NEB ONE (20:40)
[2017-06-11] MEDS ORDERED: ACETAMINOPHEN WITH CODEINE 120-12 MG/5 ML UDCUP PO ONE (20:40)
--- NOTE | 2017-06-11 20:45 | ER Document Report ---
ED Oral Problem - General Chief Complaint: Toothache Stated Complaint: TOOTHACHE Time Seen by Provider: 06/11/17 20:33 Mode of Arrival: Ambulatory Information source: Patient Notes: Patient is a 41-year-old male who presents to the ER today for tooth pain to tooth #9 and 10 upper left, front 3 days. Patient has chronic tooth pain. Patient also complains of fever, cough that is productive, chills, sinus pressure after being diagnosed with bronchitis on June 03, given cough medication and steroid but stating that he is no better. Patient admits to fever of 101F at home. He has been taking Tylenol for pain and fever at home. Patient admits to some shortness of breath intermittently but denies any wheezing. He was given an inhaler when he was here on June 03 as well and states that he is already out of that inhaler. He has no history of asthma. TRAVEL OUTSIDE OF THE [place] IN LAST 30 DAYS: No - Related Data Allergies/Adverse Reactions: No Known Allergies Allergy (Verified 06/03/17 20:07) Past Medical History - General Information source: Patient - Social History Smoking Status: Unknown if Ever Smoked Family History: COPD Renal/ Medical History: Denies: Hx Peritoneal Dialysis Psychiatric Medical History: Denies: Hx Depression - Immunizations Hx Diphtheria, Pertussis, Tetanus Vaccination: Yes Review of Systems - Review of Systems Constitutional: See HPI EENT: See HPI Cardiovascular: No symptoms reported Respiratory: See HPI Gastrointestinal: No symptoms reported Genitourinary: No symptoms reported Male Genitourinary: No symptoms reported Musculoskeletal: No symptoms reported Skin: No symptoms reported Hematologic/Lymphatic: No symptoms reported Neurological/Psychological: No symptoms reported Physical Exam - Vital signs Vitals: Temp Pulse Resp BP Pulse Ox 99.5 F 105 H 16 130/75 H 96 06/11/17 19:47 06/11/17 19:47 06/11/17 19:47 06/11/17 19:47 06/11/17 19:47 - Notes Notes: PHYSICAL EXAMINATION: GENERAL: Mildly ill-appearing, but in no acute distress. HEAD: Atraumatic, normocephalic. EYES: Pupils equal round and reactive to light, extraocular movements intact, sclera anicteric, conjunctiva are normal. ENT: ear canals without erythema or foreign body, TMs pearly ellington with good bony landmarks, nares patent, oropharynx clear without exudates. Moist mucous membranes. Very poor dentition, tooth #9 and 10 and black And rotted, maxillary sinus tender to palpation NECK: Normal range of motion, supple without lymphadenopathy LUNGS: cough, otherwise CTAB and equal. No wheezes rales or rhonchi. HEART: Regular rate and rhythm without murmurs ABDOMEN: Soft, no tenderness. No guarding, no rebound BACK: no vertebral tenderness, normal ROM GI/: no CVA tenderness EXTREMITIES: Normal range of motion, no pitting edema. No cyanosis. NEUROLOGICAL: Cranial nerves grossly intact. Normal sensory/motor exams. PSYCH: Normal mood, normal affect. SKIN: Warm, Dry, normal turgor, no rashes or lesions noted Course - Re-evaluation Re-evalutation: 06/11/17 20:43 with length of symptoms, will place pt on abx, give cough medication and inhaler from the ER. advised to see dentist for tooth pain. - Vital Signs Vital signs: Temp Pulse Resp BP Pulse Ox 99.5 F 105 H 16 130/75 H 96 06/11/17 19:47 06/11/17 19:47 06/11/17 19:47 06/11/17 19:47 06/11/17 19:47 Discharge - Discharge Clinical Impression: Pain, dental, Bronchitis Sinusitis Qualifiers: Sinusitis location: unspecified location Chronicity: acute Recurrence: non- recurrent Qualified Code(s): J01.90 - Acute sinusitis, unspecified Condition: Stable Disposition: HOME, SELF-CARE Additional Instructions: Return immediately for any new or worsening symptoms. Follow up with primary care provider, call tomorrow to make followup appointment. Prescriptions: Acetaminophen with Codeine [Tylenol with Codeine 120 mg-12 mg/5 ml] 5 ml PO Q4HP PRN #120 ml PRN Reason: Amoxicillin/Potassium Clav [Augmentin 875-125 Tablet] 1 each PO BID #20 tablet Referrals: [facility] [Provider Group] - Follow up as needed
[2017-06-11] MEDS ORDERED: ALBUTEROL SULFATE HFA (90 MCG/PUFF) 8 GM MDI (1 MDI/ER DISP) IH PRN (20:50)
== END 2017-06-11 21:04 | disposition home or self-care (01) ==
LOC: ER 19:41
DX: G89.29 Other chronic pain (principal); K08.89 Other specified disorders of teeth and supporting structures; J01.90 Acute sinusitis, unspecified; J40 Bronchitis, not specified as acute or chronic; R50.9 Fever, unspecified; R05 Cough
CPT/HCPCS: 94640; 99282; J3490 ×2

== ENCOUNTER 2017-10-14 00:03 | Emergency (ER) | payer OTHER ==
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
[2017-10-14 04:23] LABS: ABSOLUTE BASOPHILS # (AUTO) 0.1 10^3/uL (0.0-0.2); ABSOLUTE EOSINOPHILS # (AUTO) 0.3 10^3/uL (0.0-0.6); ABSOLUTE LYMPHOCYTES (AUTO) 3.4 10^3/uL (0.5-4.7); ABSOLUTE MONOCYTES (AUTO) 0.9 10^3/uL (0.1-1.4); ABSOLUTE NEUT (AUTO) 4.7 10^3/uL (1.7-8.2); BASOPHILS % (AUTO) 0.9 % (0-2); EOSINOPHILS % (AUTO) 2.7 % (0-6); HEMATOCRIT 38.4 % (37.9-51.0); HEMOGLOBIN 13.4 g/dL (13.5-17.0); LYMPHOCYTES % (AUTO) 36.3 % (13-45); MEAN CORPUSCULAR HGB CONC 34.9 g/dL (32.0-36.0); MEAN CORPUSCULAR VOLUME 86 fl (80-97); PLATELET COUNT 225 10^3/uL (150-450); RED BLOOD COUNT 4.47 10^6/uL (4.35-5.55); SEGMENTED NEUTROPHILS % (AUTO) 50.1 % (42-78); TOTAL CELLS COUNTED % (AUTO) 100 %; WHITE BLOOD COUNT 9.4 10^3/uL (4.0-10.5)
[2017-10-14 04:36] LABS: ALANINE AMINOTRANSFERASE 66 U/L (21-72); ALBUMIN 4.3 g/dL (3.5-5.0); ALKALINE PHOSPHATASE 86 U/L (38-126); ANION GAP 13 (5-19); ASPARTATE AMINO TRANSFERASE 56 U/L (17-59); BILIRUBIN,DIRECT 0.3 mg/dL (0.0-0.4); BILIRUBIN,TOTAL 0.4 mg/dL (0.2-1.3); BLOOD UREA NITROGEN 14 mg/dL (7-20); C-REACTIVE PROTEIN 36.4 mg/L (<10.0); CALCIUM 9.1 mg/dL (8.4-10.2); CARBON DIOXIDE 29 mmol/L (22-30); CHLORIDE 99 mmol/L (98-107); GLUCOSE 88 mg/dL (75-110); POTASSIUM 4.1 mmol/L (3.6-5.0); TOTAL PROTEIN 7.9 g/dL (6.3-8.2)
[2017-10-14 04:58] LABS: ERYTHROCYTE SEDIMENTATION RATE 33 mm/hr (0-15)
[2017-10-14] MEDS ORDERED: CLINDAMYCIN 600 MG/D5W RTU 600 MG/50 ML RTUPB IV ONE (05:09)
[2017-10-14] MEDS ORDERED: HYDROCODONE/ACETAMINOPHEN 5-325 MG (6 TAB/ER DISP) PO PRN (06:23)
--- NOTE | 2017-10-14 06:23 | ER Document Report ---
ED Hand/Wrist Injury - General Chief Complaint: Finger Injury Stated Complaint: FINGER INJURY Time Seen by Provider: 10/14/17 02:56 Information source: Patient Notes: Patient is a 41-year-old male who presents with chief complaint of right index finger pain after shooting himself in the finger with a nail gun yesterday. Patient reports he was able to pull the nail out. Patient reports increased pain and swelling to the area. Patient denies any fevers. Patient reports tetanus is up-to-date. TRAVEL OUTSIDE OF THE [place] IN LAST 30 DAYS: No - Related Data Allergies/Adverse Reactions: No Known Allergies Allergy (Verified 06/03/17 20:07) Past Medical History - General Information source: Patient - Social History Smoking Status: Current Every Day Smoker Chew tobacco use (# tins/day): No Frequency of alcohol use: None Drug Abuse: None Family History: COPD Patient has suicidal ideation: No Patient has homicidal ideation: No - Medical History Medical History: Negative Renal/ Medical History: Denies: Hx Peritoneal Dialysis Psychiatric Medical History: Denies: Hx Depression Surgical Hx: Negative - Immunizations Hx Diphtheria, Pertussis, Tetanus Vaccination: Yes Review of Systems - Review of Systems Constitutional: No symptoms reported EENT: No symptoms reported Cardiovascular: No symptoms reported Respiratory: No symptoms reported Gastrointestinal: No symptoms reported Genitourinary: No symptoms reported Male Genitourinary: No symptoms reported Musculoskeletal: See HPI Skin: No symptoms reported Hematologic/Lymphatic: No symptoms reported Neurological/Psychological: No symptoms reported Physical Exam - Vital signs Vitals: Temp Pulse Resp BP Pulse Ox 98.0 F 86 18 121/84 95 10/14/17 00:08 10/14/17 00:08 10/14/17 00:08 10/14/17 00:08 10/14/17 00:08 - Notes Notes: PHYSICAL EXAMINATION: GENERAL: Well-appearing, well-nourished and in no acute distress. HEAD: Atraumatic, normocephalic. EYES: Pupils equal round extraocular movements intact, conjunctiva are normal. ENT: Nares patent NECK: Normal range of motion LUNGS: No respiratory distress Musculoskeletal: Normal range of motion, swelling and erythema noted to left index finger, extends approximately 3 cm into the hand. Patient is able to make a fist. Capillary refill is less than 3 seconds, positive motor and sensation distal to injury. NEUROLOGICAL: Normal speech, normal gait. PSYCH: Normal mood, normal affect. SKIN: Warm, Dry, normal turgor, no rashes or lesions noted. Course - Re-evaluation Re-evalutation: X-ray is negative for any foreign body. Physical exam is unremarkable other than swelling and erythema to the left index finger, normal range of motion, patient able to make a complete fist, capillary refill less than 3 seconds, normal motor and sensation distal to injury. CBC is unremarkable with no leukocytosis. ESR is 33, C-reactive protein is 36.4. Patient's finger appears infected however it has not completely moved up into the hand. Patient was given dose of IV clindamycin in the emergency department. Patient will be discharged home on p.o. clindamycin as well as analgesics. Patient to follow- up with orthopedics this week, return to the emergency department sooner if worsening. - Vital Signs Vital signs: Temp Pulse Resp BP Pulse Ox 97.7 F 56 L 15 102/69 99 10/14/17 06:36 10/14/17 06:36 10/14/17 06:36 10/14/17 06:36 10/14/17 06:36 - Laboratory Result Diagrams: 10/14/17 04:04 10/14/17 04:04 Laboratory results interpreted by me: 10/14/17 10/14/17 04:04 04:04 Hgb 13.4 L ESR 33 H C-Reactive Protein 36.4 H Discharge - Discharge Clinical Impression: Finger infection Condition: Stable Disposition: HOME, SELF-CARE Additional Instructions: Your xray was negative for any fractures. Please take the antibiotics as prescribed. Follow up this week with Dr. Worrell office for a follow up for early hand infection, call this morning for an appointment. Ice and elevate the area. Return to the emergency department if you develop worsening pain, worsening swelling or develop a fever. Prescriptions: Clindamycin HCl 300 mg PO TID #30 capsule Referrals: JL SHARMA, [ACTIVE STAFF] - Follow up as needed
[2017-10-14 06:36] VITALS: BP 102/69
== END 2017-10-14 06:37 | disposition home or self-care (01) ==
LOC: ER 00:03
DX: L08.9 Local infection of the skin and subcutaneous tissue, unspecified (principal); M79.644 Pain in right finger(s); W29.4XXA Contact with nail gun, initial encounter; Y92.009 Unspecified place in unspecified non-institutional (private) residence as the place of occurrence of the external cause; F17.200 Nicotine dependence, unspecified, uncomplicated
CPT/HCPCS: 36415; 80053; 85025; 85652; 86140; 87040; 96365; 99284

== ENCOUNTER 2018-06-19 09:58 | Emergency (ER) | payer OTHER ==
[2018-06-19 10:03] VITALS: BP 115/78
[2018-06-19] MEDS ORDERED: ACETAMINOPHEN 325 MG TABLET PO ONE (10:21)
--- NOTE | 2018-06-19 10:21 | ER Document Report ---
HPI - HPI Time Seen by Provider: 06/19/18 10:11 Pain Level: 3 Context: Patient is a 42-year-old male who presents to the emergency department with a chief complaint of right shoulder pain. His pain has been going on for the past 2 months. He states it is it 4 out of 5 pain. He states that having his arm up makes the pain better, but having his arm down makes the pain worse. He also has some muscle tension in his right shoulder. He states that he was doing some yard work and since then, he has had his right shoulder pain. He has been taking ibuprofen, with little relief. Has not taken acetaminophen. Has not seen his primary care provider in regards to this issue. Past Medical History - General Information source: Patient - Social History Smoking Status: Current Every Day Smoker Family History: COPD Renal/ Medical History: Denies: Hx Peritoneal Dialysis Psychiatric Medical History: Denies: Hx Depression - Immunizations Hx Diphtheria, Pertussis, Tetanus Vaccination: Yes Vertical Provider Document - CONSTITUTIONAL Agree With Documented VS: Yes Exam Limitations: No Limitations General Appearance: No Apparent Distress - INFECTION CONTROL TRAVEL OUTSIDE OF THE [place] IN LAST 30 DAYS: No - HEENT HEENT: Atraumatic, Normocephalic - NECK Neck: Normal Inspection - RESPIRATORY Respiratory: Breath Sounds Normal, No Respiratory Distress - CARDIOVASCULAR Cardiovascular: Regular Rate, Regular Rhythm Pulses: Normal: Radial - GI/ABDOMEN Gastrointestinal: Abdomen Soft - BACK Back: Normal Inspection - MUSCULOSKELETAL/EXTREMETIES Musculoskeletal/Extremeties: FROM, Tender - Right anterior shoulder - NEURO Level of Consciousness: Awake, Alert, Appropriate Motor/Sensory: No Motor Deficit, No Sensory Deficit - DERM Integumentary: Warm, Dry Course - Re-evaluation Re-evalutation: 06/19/18 10:22 Patient has a history of left shoulder dislocation. I highly doubt the patient has a shoulder dislocation, but he will be sent for x-rays. He has full range of motion of his right shoulder. He will follow-up with orthopedics in regards to this visit. 06/19/18 11:16 Patient's shoulder x-ray is normal. He will follow-up with orthopedics in regards to his shoulder pain. He will be prescribed naproxen. Verbal discharge instructions were given to the patient. They verbalized understanding. They are stable for discharge. - Vital Signs Vital signs: Temp Pulse Resp BP Pulse Ox 97.4 F 65 18 115/78 97 06/19/18 10:02 06/19/18 10:02 06/19/18 10:02 06/19/18 10:02 06/19/18 10:02 Procedures - Immobilization Right Shoulder Pre-Proc Neuro Vasc Exam: Normal Immobilizer type: Sling Performed by: PCT Post-Proc Neuro Vasc Exam: Normal Alignment checked and good: Yes Discharge - Discharge Clinical Impression: Right shoulder pain Qualifiers: Chronicity: acute Qualified Code(s): M25.511 - Pain in right shoulder Condition: Stable Disposition: HOME, SELF-CARE Additional Instructions: You were seen today in the emergency department for right shoulder pain. Your x-ray is normal. You have been given naproxen, medication to help with your pain. Please take as directed. Do not take ibuprofen while you are on naproxen. You can take acetaminophen 1000 mill grams every 6 hours as needed for your pain. Please follow-up with orthopedics in regards to this visit. Prescriptions: Naproxen 500 mg PO BID #60 tablet Referrals: JL SHARMA DO [ACTIVE STAFF] - 06/21/18
--- NOTE | 2018-06-19 11:05 | RADIOLOGY REPORT (SQ) ---
EXAM DESCRIPTION: SHOULDER RIGHT 2 OR MORE VIEWS COMPLETED DATE/TIME: 06/19/2018 10:32 am REASON FOR STUDY: shoulder pain COMPARISON: None. NUMBER OF VIEWS: Three views right shoulder. LIMITATIONS: None. FINDINGS: There is no acute or significant bone, joint or soft tissue abnormality. OTHER: No other significant finding. IMPRESSION: NORMAL STUDY. TECHNICAL DOCUMENTATION: JOB ID: [id number] Reading location - IP/workstation name: [email or web address]
== END 2018-06-19 11:25 | disposition home or self-care (01) ==
LOC: ER 09:58
DX: M25.511 Pain in right shoulder (principal); F17.200 Nicotine dependence, unspecified, uncomplicated; Z87.828 Personal history of other (healed) physical injury and trauma
CPT/HCPCS: 99283